=== PATIENT | male | born 1995 | race African-American/Black ===

== ENCOUNTER → 2018-10-19 | Outpatient (CLI) | payer SELFPAY ==
[2016-10-10 14:49] VITALS: BP 162/73
[~2018-10-19] MED LIST: ALBU2.5V8 INH; AZIT250T PO; PRED20TA PO
== END | disposition home or self-care (01) ==
LOC: PMGWOUND 10:35
PROVIDERS: ATTEND Preventive Medicine Undersea and Hyperbaric Medicine
DX: I87.311 Chronic venous hypertension (idiopathic) with ulcer of right lower extremity (principal); L97.312 Non-pressure chronic ulcer of right ankle with fat layer exposed; F17.210 Nicotine dependence, cigarettes, uncomplicated; E66.9 Obesity, unspecified; Z68.34 Body mass index [BMI] 34.0-34.9, adult
CPT/HCPCS: 29581; 97597